=== PATIENT | male | born 1970 | race Hispanic/Latino ===

== ENCOUNTER 2025-03-08 13:32 | Emergency (ER) | payer BC, MEDICAID ==
[~2025-03-08] VITALS: Ht 170.2 cm; Wt 79.8 kg
[2025-03-08 14:14] VITALS: BP 150/96; PULSE 100; RESP 16; TEMP 98.3; O2SAT 100
[2025-03-08 14:20] LABS: BASOPHILS # (AUTO) 0.06 K/uL (0.00-0.20); BASOPHILS % (AUTO) 1.2 % (0.0-5.0); EOSINOPHILS # (AUTO) 0.24 K/uL (0.00-0.70); EOSINOPHILS % (AUTO) 4.7 % (0.0-8.0); HEMATOCRIT 42.1 % (42-54); IMMATURE GRANULOCYTE ABSOLUTE 0.01 K/uL (0-1); LYMPHOCYTES # (AUTO) 1.3 K/uL (1.0-4.8); LYMPHOCYTES % (AUTO) 24.7 % (21.0-51.0); MEAN CORPUSCULAR HGB CONC 35.6 g/dL (32.0-36.0); MEAN CORPUSCULAR VOLUME 92.7 fL (79-99); MONOCYTES # (AUTO) 0.7 K/uL (0.1-1.0); MONOCYTES % (AUTO) 12.7 % (3.0-13.0); NEUTROPHILS # (AUTO) 2.9 K/uL (1.8-7.7); NEUTROPHILS % (AUTO) 56.5 % (40.0-77.0); PLATELET COUNT (AUTO) 112 K/uL (130-400); RED BLOOD CELL COUNT(AUTO) 4.54 MIL/uL (4.50-6.20); RED CELL DISTRIBUTION WIDTH 13.1 % (11.0-15.5); WHITE BLOOD COUNT (AUTO) 5.1 K/uL (4.8-10.8)
[2025-03-08 14:27] LABS: CREATININE 0.9 mg/dL (0.5-1.3)
--- NOTE | 2025-03-08 14:31 | NUR ---
PATIENT INITIALLY VOICED COMPLAINTS OF FATIGUE AFTER WORKING IN THE HOT SUN. PATIENT THEN VOICED HE HAS SUICIDAL IDEATION WITH PLAN TO THROW HIMSELF IN FRONT OF A CAR. PATIENT VOICES NO INTENTION OF CARRYING OUT PLAN. PATIENT DENIES AH\VH\HI. PATIENT PRESENT WITH APPROPRIATE AFFECT, DISHELVED APPEARANCE.
--- NOTE | 2025-03-08 14:40 | ERN ---
ED Note History of Present Illness Stated Complaint: FATIGUE Chief Complaint: Suicidal Ideation Time Seen by MD: 13:39 Dictation: This is a 54-year-old male who presented to the emergency room complaining of fatigue after being in the hot sun for many hours. He has been through [facility] rooms in [facility] as well as [facility] for many complaints. He stated that he is homeless and is living on the streets. 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 When he was being seated in the fast track area he expressed to the nurses that he has been having suicidal ideations and that he would rather be Temperature 98.3 pulse 100 respirations 16 blood pressure 150/96 with a pulse oximetry of 100% on room air Allergies: Coded Allergies: No Known Allergies (Unverified Allergy, Unknown, 03/07/25) Past Medical History Past Medical History: Dementia, Diabetes-Type II Additional Past Medical Hx: memory problems Surgical History: Other Surgical History Other: craniectomy Family History: Negative Social History: Negative RN Note Reviewed/Agreed w/PFSH: Yes Review of System Dictation Constitutional: Negative for fever,chills, and weight loss Eyes: Negative for injury, pain,redness, and discharge ENT: Negative for injury,pain or swelling Cardiovascular: Negative for chest pain, palpitations, and edema Respiratory: Negative for shortness of breath, cough, and wheezing, Abdomen/GI: Negative for abdominal pain, nausea, vomiting, diarrhea, and constipation Back: Negative for injury and pain : Negative for injury, bleeding and discharge MS/Extremity: Negative for injury and deformity Skin: Negative for rash, and discoloration Neuro: Negative for headache, weakness, numbness, tingling, and seizure Psych: Positive for suicide ideation, denies homicidal ideation, and hallucinations Initial Vital Sign VS Vital Signs Date Time Temp Pulse Resp B/P (MAP) Pulse Ox O2 Delivery O2 Flow Rate FiO2 03/08/25 14:14 98.2 100 16 150/96 100 Room Air 0 03/08/25 14:14 21 Physical Exam Dictation General: awake, alert, NAD unkempt disheveled Head/Face: Normocephalic, atraumatic Eyes: PERRL, EOMI, vision at baseline ENT: oral cavity clear, TMs clear, no signs of infection Neck: Trachea midline, supple, no nuchal rigidity Cardiovascular: RRR, normal S1/S2, No MRGs, no JVD Respiratory: CTAB, no respiratory distress, No rales or wheezes Abdomen: Soft, non-tender, non-distended, normal bowel sounds, no guarding or rebound. Skin: Warm, dry, normal turgor, no rash MS/Extremity: Pulses equal, no cyanosis, neurovascular intact, FROM Neuro: COAx4, GCS 15, strength 5/5, CN 2-12 intact, normal cerebellar exam, normal gait, Psych: Normal behavior, mood, and affect normal Extremities-trace edema without any palpable cords, Homans sign is negative Results (Laboratory/Radiology) Laboratory/Radiology Laboratory Tests Test 03/08/25 14:11 03/08/25 14:40 White Blood Count 5.1 K/uL (4.8-10.8) Red Blood Count 4.54 MIL/uL (4.50-6.20) Hemoglobin 15.0 g/dL (14.0-18.0) Hematocrit 42.1 % (42-54) Mean Corpuscular Volume 92.7 fL (79-99) Mean Corpuscular Hemoglobin 33.0 pg (27.0-33.0) Mean Corpuscular Hemoglobin Concent 35.6 g/dL (32.0-36.0) Red Cell Distribution Width 13.1 % (11.0-15.5) Platelet Count 112 K/uL (130-400) L Mean Platelet Volume 10.9 fL (7.5-10.5) H Immature Granulocyte % (Auto) 0.2 % (0-1) Neutrophils (%) (Auto) 56.5 % (40.0-77.0) Lymphocytes (%) (Auto) 24.7 % (21.0-51.0) Monocytes (%) (Auto) 12.7 % (3.0-13.0) Eosinophils (%) (Auto) 4.7 % (0.0-8.0) Basophils (%) (Auto) 1.2 % (0.0-5.0) Neutrophils # (Auto) 2.9 K/uL (1.8-7.7) Lymphocytes # (Auto) 1.3 K/uL (1.0-4.8) Monocytes # (Auto) 0.7 K/uL (0.1-1.0) Eosinophils # (Auto) 0.24 K/uL (0.00-0.70) Basophils # (Auto) 0.06 K/uL (0.00-0.20) Absolute Immature Granulocyte (auto 0.01 K/uL (0-1) Nucleated Red Blood Cells 0.0 % (0.0-0.19) Sodium Level 136 mmol/L (136-145) Potassium Level 4.0 mmol/L (3.5-5.1) Chloride Level 103 mmol/L (101-111) Carbon Dioxide Level 26 mmol/L (21-32) Blood Urea Nitrogen 12 mg/dL (7-18) Creatinine 0.9 mg/dL (0.5-1.3) Glomerular Filtration Rate Calc 101 mL/min (>90) Random Glucose 133 mg/dL (70-105) H Total Calcium 8.6 mg/dL (8.5-10.1) Total Creatine Kinase 181 U/L (21-232) Troponin I High Sensitivity 7.7 ng/L (4-75) B-Type Natriuretic Peptide 16 pg/mL (0-100) Salicylates Level < 2.8 mg/dL (2.8-20.0) L Acetaminophen Level < 1 mcg/mL (10-29) L Serum Alcohol < 3 mg/dL (0-10) Urine Color LIGHT-YELLOW (YELLOW) Urine Appearance CLEAR (CLEAR) Urine pH 6.5 (5.0-8.0) Urine Specific [place] 1.008 (1.001-1.031) Urine Protein NEGATIVE mg/dL (NEGATIVE) Urine Glucose (UA) NEGATIVE mg/dL (NEGATIVE) Urine Ketones NEGATIVE mg/dL (NEGATIVE) Urine Occult Blood NEGATIVE (NEGATIVE) Urine Nitrate NEGATIVE (NEGATIVE) Urine Bilirubin NEGATIVE mg/dL (NEGATIVE) Urine Urobilinogen 3 mg/dL (0.2-1.0) H Urine Leukocyte Esterase NEGATIVE Tirso/uL Urine Opiates Screen NEGATIVE (NEGATIVE) Urine Barbiturates Screen NEGATIVE (NEGATIVE) Urine Phencyclidine Screen NEGATIVE (NEGATIVE) Urine Amphetamines Screen NEGATIVE (NEGATIVE) Urine Benzodiazepines Screen NEGATIVE (NEGATIVE) Urine Cocaine Screen NEGATIVE (NEGATIVE) Urine Marijuana (THC) Screen NEGATIVE (NEGATIVE) Labs Reviewed?: Yes ED Course ED Course Orders Procedure Category Date Status Time Cardiac Panel LAB 03/08/25 Complete 14:01 Cbc With Differential LAB 03/08/25 Complete 14:01 Basic Metabolic Panel LAB 03/08/25 Complete 14:01 B-Type Natriuretic LAB 03/08/25 Complete Peptide 14:01 Urinalysis Profile LAB 03/08/25 Complete 14:01 Drug Screen Urine LAB 03/08/25 Complete 14:34 Alcohol, Blood LAB 03/08/25 Complete 14:34 Salicylate LAB 03/08/25 Complete 14:38 Acetaminophen LAB 03/08/25 Complete 14:38 Vital Signs Date Time Temp Pulse Resp B/P (MAP) Pulse Ox O2 Delivery O2 Flow Rate FiO2 03/08/25 14:14 98.2 100 20 150/96 100 Room Air* 0 21 03/08/25 14:14 98.2 100 16 150/96 100 Room Air 0 We will perform diagnostic labs, and administer medications according to the patient's complaint. Once the results are available, will review and personally interpreted the labs to rule out any acute life-threatening emergency the trach require immediate intervention and treatment. I will then re-evaluate the patient after treatment and diagnostic exams have return to determine whether the patient requires any further testing, can safely be discharged home or need further admission to hospital for additional treatment and evaluation. Labs reviewed CBC normal BNP 7 is with a normal limits cardiac workup is negative urine drug screen is negative. Behavioral health screener has been consulted 6:40 p.m. patient was screened by behavioral health counselor and deemed not a candidate for inpatient psychiatric stabilization. She indicated to me that they have been working with the patient unfortunately due to lack of transportation he has not been able to keep up the appointments as they would help with his homelessness. He has an appointment set on the 9th for intake and she indicated to me that he they will reach out to him again Behavioral health cleared him for discharge Medical Decision Making MDM MDM: Differential diagnosis: Depression, traumatic brain injury, dementia, psychiatric disorder undefined Rationale: Tests considered and ordered secondary to shared decision making include: Previous outside records reviewed: Old ER visits. Risk of complication and/or morbidity or mortality of patient management: None Medications-Per medication reconciliation Need for hospitalization: Patient does not meet criteria for hospitalization. Need for emergency major/minor surgery: No There are no social concerns with this patient. Prescription drug management Prescriptions will include symptomatic care Patient's prior external medical records from other ER visits were reviewed by me as indicated. Prior testing and results from previous visits were reviewed. Prior tests were taken into account with medical decision making and resource utilization, independent historian/historians were used to obtain complete medical history. I independently interpreted the test that were performed, results were reviewed by me and considered findings on radiology if ordered. Medical management and examination interpretation discussions were had by me with other qualified healthcare professionals as indicated for the patient's care. Problem List Problem List: (1) Dehydration after exertion (2) Suicidal ideations (3) Unsheltered homelessness (4) Lack of family support DX & DISP Disposition: Discharge Departure Impression: Primary Impression: Dehydration after exertion Additional Impressions: Suicidal ideations, Unsheltered homelessness, Lack of family support Condition: Stable Additional Instructions: Patient and the caregiver have been informed of all the diagnostic tests and the imaging conducted during the today's visit to the emergency room and has verbalized understanding of the results I have personally reviewed and inte rpreted all diagnostic exams performed here in the ER today as well as the vital signs documented by the nursing staff. The patient is now being discharged. Referrals: SELF,REFERRAL (PCP) ADAM YAÑEZ MD Mar 08, 2025 14:40
[2025-03-08 14:54] LABS: B-TYPE NATRIURETIC PEPTIDE 16 pg/mL (0-100)
[2025-03-08 14:56] LABS: ACETAMINOPHEN < 1 mcg/mL (10-29); SALICYLATE < 2.8 mg/dL (2.8-20.0)
[2025-03-08 15:00] LABS: ADD UA MICROSCOPIC NO; APPEARANCE,URINE CLEAR (CLEAR); BILIRUBIN,URINE NEGATIVE (NEGATIVE); COLOR,URINE LIGHT-YELLOW (YELLOW); GLUCOSE, URINE (UA) NEGATIVE (NEGATIVE); KETONES,URINE NEGATIVE (NEGATIVE); LEUKOCYTE ESTERASE ,URINE NEGATIVE Leu/uL (NEGATIVE); NITRATE,URINE NEGATIVE (NEGATIVE); OCCULT BLOOD,URINE NEGATIVE (NEGATIVE); PH,URINE 6.5 (5.0-8.0); PROTEIN,URINE NEGATIVE (NEGATIVE); UROBILINOGEN,URINE 3 mg/dL (0.2-1.0)
--- NOTE | 2025-03-08 15:05 | NUR ---
PT STATES "I CAME TO THE HOSPITAL TODAY IS BECAUSE OF MY DIABETES AND I WOULD RATHER THAN HAVE IT." WHEN ASKED IF HE WISHES TO HARM HIMSELF HE STATES "I WANT TO JUMP IN FRONT OF A CAR". DENIES AUDITORY, VISUAL AND TACTILE HALLUCINATIONS. DENIES HI. PT BELONGINGS GIVEN TO SECURITY.
[2025-03-08 15:07] LABS: AMPHET/METH SCREEN,URINE NEGATIVE (NEGATIVE); BARBITURATE SCREEN, URINE NEGATIVE (NEGATIVE); BENZODIAZEPINES SCREEN,URINE NEGATIVE (NEGATIVE); CANNABINOID SCREEN,URINE NEGATIVE (NEGATIVE); COCAINE SCREEN,URINE NEGATIVE (NEGATIVE); OPIATE SCREEN,URINE NEGATIVE (NEGATIVE); PHENCYCLIDINE SCREEN,URINE NEGATIVE (NEGATIVE)
--- NOTE | 2025-03-08 15:27 | NUR ---
TROPICAL [employer]ISIS [employer]OTLINE CALLED. SCREENER IS ON THE WAY TO ED.
--- NOTE | 2025-03-08 16:45 | NUR ---
CHOPPED STRAND OPERATOR NELSY AT BEDSIDE.
--- NOTE | 2025-03-08 18:08 | NUR ---
PER TROPICAL SCREENER, PT DOES NOT MEET CRITERIA FOR ADMISSION. MADE DR. YAÑEZ AWARE.
--- NOTE | 2025-03-08 18:18 | NUR ---
PT PROVIDED PHONE NUMBER OF MOTHER IN LAW TO CALL ONCE READY FOR DISCHARGE. . PAULO (MOTHER IN LAW).
--- NOTE | 2025-03-08 18:28 | NUR ---
CALLED NEXT OF KIN OF PT. UNABLE TO REACH. LEFT VOICEMAIL.
== END 2025-03-08 19:00 | disposition home or self-care (01) ==
LOC: EDH 13:32
DX: E86.0 Dehydration (principal); R45.851 Suicidal ideations; E11.9 Type 2 diabetes mellitus without complications; F03.90 Unspecified dementia, unspecified severity, without behavioral disturbance, psychotic disturbance, mood disturbance, and anxiety; Z59.02 Unsheltered homelessness
CPT/HCPCS: 99284; 82550; 84484 ×2; 80048; 80053; 83880 ×2; 80305 ×2; 85025 ×2; 83605; 82010; 81003; 36415 ×2; 96360; 99283; 93005; 84145; G0481; J7120

== ENCOUNTER 2025-03-08 21:41 | Emergency (ER) | payer BC, MEDICAID ==
[~2025-03-08] VITALS: Ht 167.6 cm; Wt 59.0 kg
[2025-03-08 22:22] VITALS: TEMP 98.3
[2025-03-08 22:45] LABS: APPEARANCE,URINE CLEAR (CLEAR); BILIRUBIN,URINE NEGATIVE (NEGATIVE); COLOR,URINE LIGHT-YELLOW (YELLOW); GLUCOSE, URINE (UA) 300 mg/dL (NEGATIVE); KETONES,URINE NEGATIVE (NEGATIVE); LEUKOCYTE ESTERASE ,URINE NEGATIVE Leu/uL (NEGATIVE); NITRATE,URINE NEGATIVE (NEGATIVE); OCCULT BLOOD,URINE NEGATIVE (NEGATIVE); PROTEIN,URINE NEGATIVE (NEGATIVE); UROBILINOGEN,URINE 0.2 mg/dL (0.2-1.0)
[2025-03-08 22:46] LABS: ADD UA MICROSCOPIC NO
[2025-03-08] MEDS: LACTATED RINGERS 1000ML IV STA (23:15)
[2025-03-08 23:32] LABS: BASOPHILS # (AUTO) 0.05 K/uL (0.00-0.20); BASOPHILS % (AUTO) 1.1 % (0.0-5.0); EOSINOPHILS # (AUTO) 0.34 K/uL (0.00-0.70); EOSINOPHILS % (AUTO) 7.7 % (0.0-8.0); HEMATOCRIT 40.3 % (42-54); IMMATURE GRANULOCYTE ABSOLUTE 0.01 K/uL (0-1); LYMPHOCYTES # (AUTO) 1.3 K/uL (1.0-4.8); LYMPHOCYTES % (AUTO) 29.5 % (21.0-51.0); MEAN CORPUSCULAR HEMOGLOBIN 33.3 pg (27.0-33.0); MEAN CORPUSCULAR HGB CONC 35.2 g/dL (32.0-36.0); MEAN CORPUSCULAR VOLUME 94.4 fL (79-99); MONOCYTES # (AUTO) 0.6 K/uL (0.1-1.0); MONOCYTES % (AUTO) 13.9 % (3.0-13.0); NEUTROPHILS # (AUTO) 2.1 K/uL (1.8-7.7); NEUTROPHILS % (AUTO) 47.6 % (40.0-77.0); PLATELET COUNT (AUTO) 99 K/uL (130-400); RED BLOOD CELL COUNT(AUTO) 4.27 MIL/uL (4.50-6.20); RED CELL DISTRIBUTION WIDTH 12.9 % (11.0-15.5); WHITE BLOOD COUNT (AUTO) 4.4 K/uL (4.8-10.8)
[2025-03-08 23:40] LABS: CREATININE 0.7 mg/dL (0.5-1.3)
[2025-03-08 23:47] LABS: ALBUMIN 2.9 g/dL (3.5-5.0); BILIRUBIN,TOTAL 0.7 mg/dL (0.2-1.0); TOTAL PROTEIN, SERUM 7.2 g/dL (6.0-8.3)
[2025-03-08 23:52] LABS: AMPHET/METH SCREEN,URINE NEGATIVE (NEGATIVE); BARBITURATE SCREEN, URINE NEGATIVE (NEGATIVE); BENZODIAZEPINES SCREEN,URINE NEGATIVE (NEGATIVE); CANNABINOID SCREEN,URINE NEGATIVE (NEGATIVE); COCAINE SCREEN,URINE NEGATIVE (NEGATIVE); OPIATE SCREEN,URINE NEGATIVE (NEGATIVE); PHENCYCLIDINE SCREEN,URINE NEGATIVE (NEGATIVE)
[2025-03-08 23:53] LABS: B-TYPE NATRIURETIC PEPTIDE 9 pg/mL (0-100)
[2025-03-09 00:58] VITALS: BP 127/65; PULSE 88; RESP 20; O2SAT 98
--- NOTE | 2025-03-09 01:50 | ERN ---
General Chief Complaint: Fatigue Stated Complaint: GENERALIZED BODY WEAKNESS Time Seen by MD: 22:04 History of Present Illness Initial Comments Patient is a 54-year-old male who has been in and out of various emergency rooms for the last 24-48 hours complaining of being tired and feeling weak and dizzy. And some of those hospitalizations he endorsed feelings of suicide. Currently he is not endorsing any feelings of suicide. He has an appointment with a [facility] on the of this month in three days. Allergies: Coded Allergies: No Known Allergies (Unverified Allergy, Unknown, 03/07/25) Past Medical History Past Medical History: Dementia, Diabetes-Type II Medical History Other: memory problems Past Surgical History: Other Surgical History Other: craniectomy Family History Family History: Negative Social History Social History: Negative Constitutional: (-) chills, (-) diaphoresis, (-) fever, (-) malaise, (-) weakness, (-) other documentation EENTM: (-) eye pain, (-) blurred vision, (-) tearing, (-) double vision, (-) ear pain, (-) ear discharge, (-) nose pain, (-) nose congestion, (-) throat pain, (-) Throat swelling, (-) mouth pain, (-) tooth pain, (-) mouth swelling, (-) other documentation Respiratory: (-) cough, (-) orthopnea, (-) short of breath, (-) stridor, (-) wheezing, (-) other documentation Cardiovascular: (-) chest pain, (-) edema, (-) palpitations, (-) syncope, (-) dyspnea on exertion, (-) other documentation Gastrointestinal/Abdominal: (+) nausea Musculoskeletal: (-) Neck pain, (-) back pain, (-) Flank Pain, (-) joint pain, (-) joint swelling, (-) muscle pain, (-) muscle stiffness, (-) gout, (-) other documentation Skin: (-) laceration, (-) contusion, (-) abrasion, (-) abscess, (-) rash, (-) change in color, (-) change in hair, (-) change in nails, (-) diaphoresis, (-) dryness, (-) other documentation Neuro: (-) altered mental status, (-) headache, (-) syncope, (-) paralysis, (-) numbness, (-) seizure, (-) pre-existing deficit, (-) tremors, (-) weakness, (-) dizziness, (-) slurred speech, (-) vertigo, (-) other documentation Physical Exam General Appearance: (+) mild distress Orientation: (+) alert Head/Face Trauma: No Eye: bilateral eye normal inspection, bilateral eye PERRL, bilateral eye EOMI Ear, Nose, Throat: (+) hearing grossly normal, (+) normal ENT inspection, (+) moist mucous membraine Neck: (+) normal inspection, (+) supple Respiratory: (+) chest non-tender, (+) lungs clear, (+) well ventilated Heart: (+) regular, (+) no gallop Results Laboratory and Microbiology Lab and Micro Result Laboratory Tests Test 03/08/25 22:00 03/08/25 23:15 Urine Color LIGHT-YELLOW (YELLOW) Urine Appearance CLEAR (CLEAR) Urine pH 6.0 (5.0-8.0) Urine Specific [place] 1.009 (1.001-1.031) Urine Protein NEGATIVE mg/dL (NEGATIVE) Urine Glucose (UA) 300 mg/dL (NEGATIVE) H Urine Ketones NEGATIVE mg/dL (NEGATIVE) Urine Occult Blood NEGATIVE (NEGATIVE) Urine Nitrate NEGATIVE (NEGATIVE) Urine Bilirubin NEGATIVE mg/dL (NEGATIVE) Urine Urobilinogen 0.2 mg/dL (0.2-1.0) Urine Leukocyte Esterase NEGATIVE [place]so/uL Urine Opiates Screen NEGATIVE (NEGATIVE) Urine Barbiturates Screen NEGATIVE (NEGATIVE) Urine Phencyclidine Screen NEGATIVE (NEGATIVE) Urine Amphetamines Screen NEGATIVE (NEGATIVE) Urine Benzodiazepines Screen NEGATIVE (NEGATIVE) Urine Cocaine Screen NEGATIVE (NEGATIVE) Urine Marijuana (THC) Screen NEGATIVE (NEGATIVE) White Blood Count 4.4 K/uL (4.8-10.8) L Red Blood Count 4.27 MIL/uL (4.50-6.20) L Hemoglobin 14.2 g/dL (14.0-18.0) Hematocrit 40.3 % (42-54) L Mean Corpuscular Volume 94.4 fL (79-99) Mean Corpuscular Hemoglobin 33.3 pg (27.0-33.0) H Mean Corpuscular Hemoglobin Concent 35.2 g/dL (32.0-36.0) Red Cell Distribution Width 12.9 % (11.0-15.5) Platelet Count 99 K/uL (130-400) L Mean Platelet Volume 11.0 fL (7.5-10.5) H Immature Granulocyte % (Auto) 0.2 % (0-1) Neutrophils (%) (Auto) 47.6 % (40.0-77.0) Lymphocytes (%) (Auto) 29.5 % (21.0-51.0) Monocytes (%) (Auto) 13.9 % (3.0-13.0) H Eosinophils (%) (Auto) 7.7 % (0.0-8.0) Basophils (%) (Auto) 1.1 % (0.0-5.0) Neutrophils # (Auto) 2.1 K/uL (1.8-7.7) Lymphocytes # (Auto) 1.3 K/uL (1.0-4.8) Monocytes # (Auto) 0.6 K/uL (0.1-1.0) Eosinophils # (Auto) 0.34 K/uL (0.00-0.70) Basophils # (Auto) 0.05 K/uL (0.00-0.20) Absolute Immature Granulocyte (auto 0.01 K/uL (0-1) Nucleated Red Blood Cells 0.0 % (0.0-0.19) Sodium Level 136 mmol/L (136-145) Potassium Level 4.0 mmol/L (3.5-5.1) Chloride Level 105 mmol/L (101-111) Carbon Dioxide Level 26 mmol/L (21-32) Blood Urea Nitrogen 10 mg/dL (7-18) Creatinine 0.7 mg/dL (0.5-1.3) Glomerular Filtration Rate Calc 110 mL/min (>90) Random Glucose 103 mg/dL (70-105) Lactic Acid Level 1.3 mmol/L (0.8-2.5) Total Calcium 8.4 mg/dL (8.5-10.1) L Total Bilirubin 0.7 mg/dL (0.2-1.0) Aspartate Amino Transf (AST/SGOT) 89 U/L (10-37) H Alanine Aminotransferase (ALT/SGPT) 115 U/L (12-78) H Alkaline Phosphatase 141 U/L (50-136) H Troponin I High Sensitivity 9 ng/L (4-75) B-Type Natriuretic Peptide 9 pg/mL (0-100) Total Protein 7.2 g/dL (6.0-8.3) Albumin 2.9 g/dL (3.5-5.0) L Procalcitonin 0.09 ng/mL (0.05-0.5) MDM I did not get the full history on this patient when I ordered labs on him. My concern was that he was dehydrated and possibly suffering from heat stroke. Laboratory results have come back normal except for elevation of his liver panel. He does not have a urinary tract infection either. I have given the patient fluid and resuscitated him. He has made numerous trips to the restroom to urinate. I need to discharge the patient from the emergency room he is welcome to stay in the lobby and then in the morning he can find a place to stay. ED Course Orders Procedure Category Date Status Time Urinalysis Profile LAB 03/08/25 Complete 22:28 Lactated Ringers PHA 03/08/25 Complete 1000ml (Lactated 23:03 12 Lead Ekg Tracing- EKG 03/08/25 Logged Technical 23:03 B-Type Natriuretic LAB 03/08/25 Complete Peptide 23:03 Cbc With Differential LAB 03/08/25 Complete 23:03 Comprehensive LAB 03/08/25 Complete Metabolic Panel 23:03 Drug Screen Urine LAB 03/08/25 Complete 23:03 Lactic Acid LAB 03/08/25 Complete 23:03 Procalcitonin LAB 03/08/25 Complete 23:03 Troponin I High LAB 03/08/25 Complete Sensitivity 23:03 Bedside Glucose CPOE 03/08/25 Transmitted Fingerstick 23:03 Beta-Hydroxy Butyrate LAB 03/08/25 In Process 23:03 Current Medications Medications (Trade) Dose Ordered Sig/Gera Route PRN Reason Start Time Stop Time Status Last Admin Dose Admin Lactated Ringer's (Lactated Ringers 1000ml) 1,000 ml BOLUS STAT IV 03/08/25 23:03 03/08/25 23:09 DC 03/08/25 23:15 Vital Signs Date Time Temp Pulse Resp B/P (MAP) Pulse Ox O2 Delivery O2 Flow Rate FiO2 03/09/25 00:58 88 20 127/65 98 Room Air* 0 21 03/08/25 22:22 98.2 98 22 121/66 98 Room Air* 0 21 03/08/25 21:42 98.1 99 18 125/69 99 Room Air 0 DX & DISP Disposition: Discharge Departure Impression: Primary Impression: Dehydration after exertion Condition: Stable Additional Instructions: Please try and make your appointment in three days with [facility] for the support that you need. Referrals: SELF,REFERRAL (PCP) MELISSA BUTT MD Mar 09, 2025 01:50
--- NOTE | 2025-03-09 06:34 | EKG ---
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
== END 2025-03-09 01:00 | disposition home or self-care (01) ==
LOC: EDH 21:41
DX: E86.0 Dehydration (principal); E11.9 Type 2 diabetes mellitus without complications; F03.90 Unspecified dementia, unspecified severity, without behavioral disturbance, psychotic disturbance, mood disturbance, and anxiety
CPT/HCPCS: 99284; 96360; 84484; 80053; 83880; 80305; 85025; 83605; 82010; 36415; 93005; 84145; J7120